=== PATIENT | male | born 1975 | race American Indian/Alaskan Native ===

== ENCOUNTER 2019-05-03 18:08 | Emergency (ER) | payer SELFPAY ==
[2019-05-03 18:44] VITALS: BP 118/75
--- NOTE | 2019-05-03 18:46 | Emergency Department Report ---
Blank Doc - Documentation Documentation: This is a 43-year-old male that presents with right knee pain. This initial assessment/diagnostic orders/clinical plan/treatment(s) is/are subject to change based on patient's health status, clinical progression and re- assessment by fellow clinical providers in the ED. Further treatment and workup at subsequent clinical providers discretion. Patient/guardians urged not to elope from the ED as their condition may be serious if not clinically assessed and managed. Initial orders include: 1- Patient sent to [facility] for further evaluation and treatment 2- xrays
[2019-05-03] MEDS ORDERED: NORCO 5/325 PO STA (23:05)
--- NOTE | 2019-05-03 23:07 | Emergency Department Report ---
ED Lower Extremity HPI - General Chief Complaint: Extremity Injury, Lower Stated Complaint: RT LEG INJURY (ACL) Time Seen by Provider: 05/03/19 18:45 Source: patient Mode of arrival: Ambulatory Limitations: No Limitations - History of Present Illness MD Complaint: knee injury -: Gradual Injury: Knee: Right Type of Injury: blunt (leg by a mechanical object1 week ago reports continued pain since that time pain is often onto the anterior region of the knee and also has a sensation of water lying down as needed from time to times well.) Place: work Severity: moderate Worsens With: movement, palpation Context: direct blow Associated Symptoms: able to partially bear weight - Related Data Previous Rx's Medication Instructions Recorded Last Taken Type Ketorolac [Toradol] 10 mg PO Q6H PRN #15 tablet 05/03/19 Unknown Rx Allergies Allergy/AdvReac Type Severity Reaction Status Date / Time shellfish derived Allergy Anaphylaxis Verified 05/03/19 18:11 ED Review of Systems ROS: Stated complaint: RT LEG INJURY (ACL) Other details as noted in HPI Comment: All other systems reviewed and negative ED Past Medical Hx - Past Medical History Previous Medical History?: Yes Additional medical history: cluster headaches - Surgical History Past Surgical History?: Yes Additional Surgical History: left hip replacement - Social History Smoking Status: Current Every Day Smoker Substance Use Type: Alcohol - Medications Home Medications: Home Medications Medication Instructions Recorded Confirmed Last Taken Type Ketorolac [Toradol] 10 mg PO Q6H PRN #15 tablet 05/03/19 Unknown Rx ED Physical Exam - General Limitations: Physical Limitation (the patient was not cooperative for the examination did not want me to physically touch his knee for 4 injuries to assist in excellent stability of his knee.) General appearance: alert, in no apparent distress - Head Head exam: Present: atraumatic, normocephalic - Eye Eye exam: Present: normal appearance - ENT ENT exam: Present: mucous membranes moist - Neck Neck exam: Present: normal inspection - Respiratory Respiratory exam: Present: normal lung sounds bilaterally. Absent: respiratory distress - Cardiovascular Cardiovascular Exam: Present: regular rate, normal rhythm. Absent: systolic murmur, diastolic murmur, rubs, gallop - GI/Abdominal GI/Abdominal exam: Present: soft, normal bowel sounds - Rectal Rectal exam: Present: deferred - Extremities Exam Extremities exam: Present: other (the patient post anterior pain to his knee unable to evaluate his patella, varus, valgus, drawer test, stability due to patient cooperation). Absent: calf tenderness - Back Exam Back exam: Present: normal inspection - Neurological Exam Neurological exam: Present: alert, oriented X3 - Psychiatric Psychiatric exam: Present: normal affect, normal mood - Skin Skin exam: Present: warm, dry, intact, normal color. Absent: rash ED Course Vital Signs 05/03/19 18:42 Temperature 98.5 F Pulse Rate 89 Respiratory 18 Rate Blood Pressure 118/75 O2 Sat by Pulse 100 Oximetry Critical care attestation.: If time is entered above; I have spent that time in minutes in the direct care of this critically ill patient, excluding procedure time. ED Disposition Clinical Impression: Knee pain Disposition: DC-01 TO HOME OR SELFCARE Is pt being admited?: No Does the pt Need Aspirin: No Condition: Stable Instructions: Knee Pain (ED), Contusion in Adults (ED) Referrals: [facility] MD INNA [Primary Care Provider] - 3-5 Days JON SEQUEIRA MD [Staff Physician] - 3-5 Days
[2019-05-03] MEDS ORDERED: NORCO 5/325 ONE (23:25)
--- NOTE | 2019-05-04 10:04 | XRay Report ---
RIGHT KNEE 3 VIEWS INDICATION / CLINICAL INFORMATION: knee pain. COMPARISON: None available. FINDINGS: Mild degenerative change at the patellofemoral joint. No fracture. No significant joint fluid. Signer Name: Foreign Dueñas MD Signed: 05/03/2019 9:35 PM Workstation Name: [id number]
== END 2019-05-03 23:30 | disposition home or self-care (01) ==
LOC: ED 18:08
DX: M25.561 Pain in right knee (principal); F17.200 Nicotine dependence, unspecified, uncomplicated; Z91.013 Allergy to seafood; Z96.642 Presence of left artificial hip joint; W22.8XXA Striking against or struck by other objects, initial encounter; Y93.89 Activity, other specified; Y92.69 Other specified industrial and construction area as the place of occurrence of the external cause; Y99.8 Other external cause status